=== PATIENT | female | born 1950 | race Caucasian/White ===

== ENCOUNTER 2018-10-26 17:44 | Emergency (ER) | payer MEDICARE, BC ==
--- NOTE | 2018-10-26 18:18 | EDM.PDOC ---
ED HPI GENERAL MEDICAL PROBLEM - General Chief Complaint: General Stated Complaint: general c/o Time Seen by Provider: 10/26/18 18:02 Source of Information: Reports: Patient History Limitations: Reports: No Limitations - History of Present Illness INITIAL COMMENTS - FREE TEXT/NARRATIVE: States that she has not felt well for about a month. Questions if it is from her statin. She typically takes it every other day. She has body aches, back ache, legs aching and generally just doesn't feel well. Feels that it has become worse today. Denies any fever or chills. Has had some diarrhea yesterday and today but in small amounts. No vomiting. Onset: Gradual Location: Reports: Generalized Quality: Reports: Ache Treatments [employer]IST: Reports: Acetaminophen Shoulder Pain Score (Numeric/FACES): 5 - Related Data Allergies Allergy/AdvReac Type Severity Reaction Status Date / Time iodine Allergy Hives Verified 10/26/18 17:53 Home Meds: Home Meds Ascorbic Acid [Vitamin C] 500 mg PO DAILY 10/26/18 [History] Calcium Carbonate [Calcium] 2 tab PO DAILY 10/26/18 [History] Cholecalciferol (Vitamin D3) [Vitamin D3] 2,000 unit PO DAILY 10/26/18 [History] Fexofenadine [Quiana] 1 tab PO DAILY PRN 10/26/18 [History] Flaxseed/Omega3,6,9/Fatty Acid [Flax Seed Oil 1,300 mg Softgel] 1 tab PO DAILY 10/26/18 [History] Ibuprofen 800 mg PO TID PRN 10/26/18 [History] LORazepam [Ativan] 0.5 mg PO Q6H PRN 10/26/18 [History] Lutein/Minerals/Vit A,C & E [Ocuvite] 1 tab PO DAILY 10/26/18 [History] Magnesium Oxide 500 mg PO DAILY 10/26/18 [History] Multivitamin [Daily Multiple Vitamin] 1 tab PO DAILY 10/26/18 [History] Past Medical History Cardiovascular History: Reports: High Cholesterol - Past Surgical History GI Surgical History: Reports: Appendectomy, Cholecystectomy Female Surgical History: Reports: Hysterectomy, Other (See Below) Other Female Surgeries/Procedures: 2 bladder lifts with mesh Social & Family History - Tobacco Use Smoking Status *Q: Never Smoker ED ROS GENERAL - Review of Systems Review Of Systems: See Below Constitutional: Reports: No Symptoms. Denies: Fever, Chills HEENT: Reports: No Symptoms Respiratory: Reports: No Symptoms Cardiovascular: Reports: No Symptoms GI/Abdominal: Reports: Abdominal Pain, Diarrhea. Denies: Vomiting : Reports: No Symptoms Musculoskeletal: Reports: Neck Pain, Shoulder Pain, Back Pain, Leg Pain, Muscle Pain, Muscle Stiffness Skin: Reports: No Symptoms Neurological: Reports: No Symptoms ED EXAM, GENERAL - Physical Exam Exam: See Below Exam Limited By: No Limitations General Appearance: Alert, WD/WN, No Apparent Distress Ears: Normal External Exam, Normal Canal, Normal TMs Nose: Normal Inspection Throat/Mouth: Normal Inspection, Normal Oropharynx, Normal Voice, No Airway Compromise Head: Atraumatic, Normocephalic Neck: Normal Inspection, Supple, Non-Tender, Full Range of Motion Respiratory/Chest: No Respiratory Distress, Lungs Clear, Normal Breath Sounds Cardiovascular: Normal Peripheral Pulses, Regular Rate, Rhythm, No Edema GI/Abdominal: Normal Bowel Sounds, Soft, Tender (mildly tender to the upper abdomen. No guarding or rigidity noted.) Extremities: Normal Range of Motion, Normal Capillary Refill Neurological: Alert, Oriented Skin Exam: Warm, Dry, Intact Course - Vital Signs Last Recorded V/S: Last Vital Signs Temp 97.8 F 10/26/18 17:44 Pulse 78 10/26/18 18:05 Resp 18 10/26/18 17:44 BP 133/83 10/26/18 18:28 Pulse Ox 95 10/26/18 18:05 - Orders/Labs/Meds Orders: Active Orders 24 hr Category Date Time Status EKG Documentation Completion [RC] STAT Care 10/26/18 18:05 Active Labs: Laboratory Tests 10/26/18 10/26/18 10/26/18 Range/Units 06:10 06:10 06:10 WBC 7.1 (5.0-10.0) 10^3/uL RBC 4.65 (4.00-5.50) 10^6/uL Hgb 14.5 (12.0-16.0) g/dL Hct 43.5 (37.0-47.0) % MCV 93.5 (82.0-94.0) fL MCH 31.2 (27.0-32.0) pg MCHC 33.3 (33.0-38.0) g/dL RDW Coeff of Jennie 12.1 (11.0-15.0) % Plt Count 313 (150-400) 10^3/uL Neut % (Auto) 60.0 (35-85) % Lymph % (Auto) 26.8 (10-55) % [place] % (Auto) 10.4 (0-16) % Eos % (Auto) 2.2 (0-5) % Baso % (Auto) 0.6 (0-3) % Neut # (Auto) 4.29 (1.80-7.00) 10^3/uL Lymph # (Auto) 1.91 (1.00-4.80) 10^3/uL [place] # (Auto) 0.74 (0.00-0.80) 10^3/uL Eos # (Auto) 0.16 (0.00-0.45) 10^3/uL Baso # (Auto) 0.04 10^3/uL Sodium 140 (136-145) mEq/L Potassium 3.6 (3.5-5.0) mEq/L Chloride 103 (98-106) mEq/L Carbon Dioxide 29 (21-32) mmol/L BUN 11 (7-18) mg/dL Creatinine 1.0 (0.6-1.0) mg/dL Est Cr Clr Drug Dosing 50.90 mL/min Estimated GFR (MDRD) 55 L (>=60) mL/min Glucose 115 H (75-99) mg/dL Calcium 8.9 (8.4-10.1) mg/dL Total Bilirubin 0.6 (0.0-1.0) mg/dL AST 21 (15-37) U/L ALT 32 (12-78) U/L Alkaline Phosphatase 63 (46-116) U/L Lactate Dehydrogenase 173 (100-190) U/L Creatine Kinase 98 (21-215) U/L Troponin I < 0.017 (0.00-0.06) ng/mL C-Reactive Protein < 0.2 L (0.2-0.8) mg/dL Total Protein 7.2 (6.4-8.2) g/dL Albumin 4.1 (3.4-5.0) g/dL Urine Color Yellow (YELLOW) Urine Appearance Clear (CLEAR) Urine pH 7.0 (4.5-8.0) Ur Specific [place] 1.015 (1.003-1.020) Urine Protein Negative (NEGATIVE) mg/dL Urine Glucose (UA) Negative (NEGATIVE) mg/dL Urine Ketones Negative (NEGATIVE) mg/dL Urine Occult Blood Negative (NEGATIVE) Urine Nitrite Negative (NEGATIVE) Urine Bilirubin Negative (NEGATIVE) Urine Urobilinogen 0.2 (0.2-1.0) EU/dL Ur Leukocyte Esterase Trace H (NEGATIVE) Urine RBC Not seen (0-5) /HPF Urine WBC 0-5 (0-5) /HPF - Re-Assessments/Exams Free Text/Narrative Re-Assessment/Exam: 10/26/18 18:58 discussed lab results and that they are all normal. Departure - Departure Time of Disposition: 18:58 Disposition: Home, Self-Care 01 Clinical Impression: Myalgia - Discharge Information *PRESCRIPTION DRUG MONITORING PROGRAM REVIEWED*: Not Applicable *COPY OF PRESCRIPTION DRUG MONITORING REPORT IN PATIENT LARA: Not Applicable Forms: ED Department Discharge Additional Instructions: stop the statin medications at this time ibuprofen or tylenol as needed for discomfort follow up with primary care provider to discuss cholesterol control. - Problem List & Annotations (1) Myalgia SNOMED Code(s): 58279418 Code(s): M79.10 - MYALGIA, UNSPECIFIED SITE Status: Acute Current Visit: Yes - Problem List Review Problem List Initiated/Reviewed/Updated: Yes - My Orders Last 24 Hours: My Active Orders 10/26/18 18:05 EKG Documentation Completion [RC] STAT - Assessment/Plan Last 24 Hours: My Active Orders 10/26/18 18:05 EKG Documentation Completion [RC] STAT
[2018-10-26 18:49] LABS: CHLORIDE,CL 103 mEq/L (98-106); SODIUM,NA 140 mEq/L (136-145)
== END 2018-10-26 19:30 | disposition home or self-care (01) ==
LOC: CC.ED 17:44
DX: M79.10 Myalgia, unspecified site (principal); Z88.8 Allergy status to other drugs, medicaments and biological substances; Z90.49 Acquired absence of other specified parts of digestive tract; Z90.710 Acquired absence of both cervix and uterus
CPT/HCPCS: 36415; 80053; 81001; 82550; 83615; 84484; 85025; 86140; 93005; 93010; 99283; 99284-25

== ENCOUNTER → 2020-03-21 | Day surgery (SDC) | payer MEDICARE, BC ==
[~2020-03-21] MED LIST: Ketamine 200 MG/20 ML MDV ONE; Lactated Ringers 1,000 ML IV ONE; Midazolam 1 MG/ML 2 ML SDV ONE; Propofol 200 MG/20 ML SDV ONE; fentaNYL 100 MCG/2 ML SDV ONE
--- NOTE | 2020-03-21 08:57 | OR ---
DATE OF OPERATION: 03/21/2020 PREOPERATIVE DIAGNOSIS: ABNORMAL CT. POSTOPERATIVE DIAGNOSIS: ABNORMAL CT. SURGEON: Aki Jimenez MD PROCEDURE: FULL-LENGTH DIAGNOSTIC COLONOSCOPY. ANESTHESIA: MAC. COMPLICATIONS: None. SPECIMEN: None. FINDINGS: 1. Full-length colonoscopy. 2. [id number] sigmoid diverticulosis. RECOMMENDATIONS: Followup colonoscopy every 10 years. INDICATIONS: The patient was evaluated by her primary and ultimately had a CT scan of her abdomen, which showed some thickening of the sigmoid and diverticular disease. She was sent for a diagnostic scope. DESCRIPTION OF PROCEDURE: The patient was prepped and draped and placed in the left lateral decubitus position. A lubricated Olympus colonoscope was inserted and easily advanced to the cecum. We were able to directly visualize the ileocecal valve and appendiceal orifice. The bowel prep was excellent. Upon withdrawal of the scope, the cecum and ascending and transverse colons were completely benign. The patient actually had very minimal diverticular disease in the sigmoid colon. She was very redundant and tortuous through this area, but no polyps, masses, ulcerations, or bleeding sites were seen and no vascular abnormalities or signs of colitis. The rectal vault appeared benign. Retroflexion showed some perianal hemorrhoid disease, otherwise benign. Air was suctioned and the scope removed without complication. JUAN/HELEN /[id number]
== END ==
LOC: CC.SDS 07:12
PROVIDERS: ATTEND Family Medicine
DX: K57.30 Diverticulosis of large intestine without perforation or abscess without bleeding (principal); K63.89 Other specified diseases of intestine; F41.9 Anxiety disorder, unspecified; E78.5 Hyperlipidemia, unspecified; Z88.8 Allergy status to other drugs, medicaments and biological substances; Z88.1 Allergy status to other antibiotic agents; Z79.899 Other long term (current) drug therapy; Z90.49 Acquired absence of other specified parts of digestive tract; Z98.890 Other specified postprocedural states
CPT/HCPCS: 00811; J2250; J2704; J3010; J7120

== ENCOUNTER 2023-04-03 09:51 | Emergency (ER) | payer MEDICARE, BC ==
[2023-04-03] MEDS ORDERED: Take Home: Cyclobenzaprine 10 MG Tab, 4 Tab Pack PO ONE (11:11)
== END 2023-04-03 11:25 | disposition home or self-care (01) ==
LOC: CC.ED 09:51
DX: S43.401A Unspecified sprain of right shoulder joint, initial encounter (principal); Z88.0 Allergy status to penicillin; Z88.2 Allergy status to sulfonamides; Z79.899 Other long term (current) drug therapy
CPT/HCPCS: 73030-RT; 73562-RT; 99283; A9270-GY